=== PATIENT | female | born 1985 | race Caucasian/White ===

== ENCOUNTER 2016-10-13 12:11 | Inpatient (IN) | payer BC ==
[2016-10-10 12:26] LABS: BASOPHILS 0.5 %; BASOPHILS ABSOLUTE 0.04 10/3/uL (0.0-0.16); EOSINOPHILS ABSOLUTE 0.23 10/3/uL (0.0-0.53); IMMATURE GRANULOCYTES 0.1 %; IMMATURE GRANULOCYTES ABSOLUTE 0.01 10/3/uL (0.0-0.11); LYMPHOCYTES 36.4 %; LYMPHOCYTES ABSOLUTE 2.76 10/3/uL (0.67-4.30); MEAN CORPUSCULAR HEMOGLOB 28.6 pg (26.0-34.0); MEAN PLATELET VOLUME 9.4 fL (9.2-13.0); MONOCYTES 7.1 %; MONOCYTES ABSOLUTE 0.54 10/3/uL (0.21-1.20); NEUTROPHILS 52.9 %; NEUTROPHILS ABSOLUTE 4.01 10/3/uL (2.02-8.40); PLATELET COUNT 386 10/3/uL (150-400); RBC DISTRIBUTION WIDTH 14.5 % (12.0-16.0); WHITE BLOOD CELLS 7.6 10/3/uL (4.5-10.5)
[2016-10-10 12:29] LABS: HEMATOCRIT 40.3 % (36.0-48.0); HEMOGLOBIN 13.3 g/dL (12.0-16.0); MANUAL DIFF NO %; MEAN CORPUSCULAR VOLUME 86.7 fL (80-100); RED CELL COUNT 4.65 10/6/uL (4.0-5.6)
[2016-10-10 12:58] LABS: INTACT PTH (ICMA) 40.1 PG/ML (10.0-65.0)
[2016-10-10 13:03] LABS: BUN (BLOOD UREA NITROGEN) 13 MG/DL (6-23); CALCIUM, SERUM 9.2 MG/DL (8.5-10.4); CHLORIDE, SERUM 104 MMOL/L (96-112); CO2 (CARBON DIOXIDE) 30 MMOL/L (24-34); CREATININE 0.88 MG/DL (0.55-1.02); GFR AFRICAN AMERICAN 100 ML/MIN (>=60); GFR NON AFRICAN AMERICAN 86 ML/MIN (>=60); GLUCOSE, SERUM 76 MG/DL (60-99); POTASSIUM, SERUM 4.1 MMOL/L (3.5-5.3); SODIUM, SERUM 140 MMOL/L (135-148)
--- NOTE | ~2016-10-13 | CN ---
Consultation Report [facility] [address] [place]. [address] NAME: ES BERMUDEZ : 81 STATUS : ADM [place] PAT#: [id number] AGE: 31 ADM/REG DATE : 10/13/16 MR#: [id number] REPORT SERV DATE: 10/15/16 DICTATED BY: HEIDY WELLS DATE: 10/15/16 REPORT STATUS : Draft TRANSCRIBED BY: MODL DATE: 10/15/16 DATE OF CONSULTATION: 10/15/2016 REASON FOR CONSULTATION: Hypoxia. PRIMARY CARE DOCTOR: Appears to be unclear. HISTORY OF PRESENT ILLNESS: This is a 31-year-old female. She suffers from obesity, history of nephrolithiasis, anemia, and depression. The patient came in with a left renal calculus, had a cystoscopy, left ureteroscopy with stone fragmentation and dusting of left renal calculus with a stenting. Subsequent CT showed a small extracapsular hematoma with a 1 mm intrarenal calculus. The patient had received significant amount of narcotics, codeine, Versed, Dilaudid, Percocet. She was hypoxic yesterday. Her narcotics were weaned down; however, her TAR DISTRIBUTOR OPERATOR was still available. The actually helped provide her boluses of Dilaudid while she was in her sleep. Per the nursing staff as the patient would have some pain in her legs, she received 9 mg of Dilaudid from 1700 hours yesterday to the beginning of the shift this morning, it is 95% on 3 L. She states she has had some pleuritic chest pain that worsens with inspiration, more in the right and left sternal borders over the past two weeks, relieved by rest, lasts more than 20 minutes. The patient endorses positive chills. No fevers. Positive nausea. No vomiting. No diarrhea. Positive chest pain as described. Positive shortness of breath. Has no orthopnea. No productive cough. The patient states she does have some pain in her lower extremities, more at night and also in the day. She also may have some apnea per the , complicated by narcotics. I am awaiting the stat CTA of her chest. REVIEW OF SYSTEMS: Ten-point review of systems as per the HPI. Otherwise, negative. PAST MEDICAL HISTORY/PAST SURGICAL HISTORY: See above. ALLERGIES: APPARENTLY ARE MORPHINE WITH CODEINE, CAUSES RASH AND SWELLING; SULFA; PENICILLIN; MACRODANTIN; AND NITROFURANTOIN: FAMILY HISTORY: Hypertension in parents. SOCIAL HISTORY: Used to smoke less than five-pack years. No alcohol. No drug use. No current smoking. HOME MEDICATIONS: See MAR. We will continue what is relevant. We would like to know what Consultation Report [facility] [address] [place]. [address] NAME: ES BERMUDEZ : 81 STATUS : ADM [place] PAT#: [id number] AGE: 31 ADM/REG DATE : 10/13/16 MR#: [id number] REPORT SERV DATE: 10/15/16 DICTATED BY: HEIDY WELLS DATE: 10/15/16 REPORT STATUS : Draft TRANSCRIBED BY: ISH DATE: 10/15/16 medication at home at baseline. Takes Lortab 10/325 p.o. q.4 hours p.r.n. pain and tramadol 50 p.o. daily. PHYSICAL EXAMINATION: VITAL SIGNS: Currently temperature 98.6, pulse 101, respirations 18, 95% on 3 L, and blood pressure 117/59. GENERAL: No acute distress. HEENT: PERRLA. No scleral icterus. CARDIOVASCULAR: Regular rate and rhythm. No murmur. RESPIRATORY: Decreased breath sounds bibasilar. Bibasilar coarse breath sounds. ABDOMEN: Obese, nontender, and nondistended. Positive bowel sounds. EXTREMITIES: She does have some pain to palpation in the bilateral lower extremities. No edema. No ecchymosis. NEUROLOGIC: A and O x4/4. GCS of 15. PSYCHIATRIC: She is very anxious. LABORATORY DATA: She has white count of 7.9, hemoglobin 10.6, and 229,000 platelets. Potassium of 4.1; 26 bicarb, 0.96 creatinine, 11 BUN; 139 sodium; 106 sugar. I am going to get a CTA of the chest, pending. I am going to get an EKG that is pending. Cardiac enzymes are pending. Her creatinine just resulted near 1.0 for a stat BMP prior to getting the CTA with contrast. IMPRESSION AND RECOMMENDATIONS: 1. Acute hypoxic respiratory failure, likely multifactorial in etiology including high- dose narcotics with respiratory depression. 2. Probably atelectasis. 3. Rule out pulmonary embolus. 4. Obesity. 5. Nausea complicated by possible narcotic-associated gastroparesis. 6. History of use of Cipro. PLAN: Thank you very much for this consultation. Panculture. Continue her Levaquin. Stat procalcitonin level. Her creatinine is permissible for contrast. We will also evaluate her CTA of the chest and will call regarding the results. Placed her on heparin at this time. We will get a lower extremity ultrasound for clot given her increased pain in her lower extremity. Pleuritic chest pain, evaluate with cardiac enzymes and EKG, it is more likely just pleurisy, incentive spirometry 10 times an hour. We will get a BNP regarding her volume status in her lungs and diurese if more than 100. Altogether, she needs to reduce her narcotic. She has 9 mg of Dilaudid IV from 1700 hours yesterday to 7 a.m. this morning per the nurse, as a result, we will change her Dilaudid TAR DISTRIBUTOR OPERATOR 0.15, dose every 20 minutes, max of 0.45 per hour. I have educated the patient about this. Discontinue any other p.r.n. narcotics. She certainly has a low pain threshold as at baseline she takes Lortab 10 q.4 hours p.r.n. I have educated the family and patient about not doing any extra doses in her sleep of Dilaudid TAR DISTRIBUTOR OPERATOR pumping as well as the risk of apnea and respiratory depression. See rest of my orders. Consultation Report [address]. [address] NAME: ES BERMUDEZ : 81 STATUS : ADM [place] PAT#: [id number] AGE: 31 ADM/REG DATE : 10/13/16 MR#: [id number] REPORT SERV DATE: 10/15/16 DICTATED BY: HEIDY WELLS DATE: 10/15/16 REPORT STATUS : Draft TRANSCRIBED BY: MODL DATE: 10/15/16 All questions have been answered. It took well over 60 minutes to do. KYLEE/ISH Heidy Wells DO / [id number] CC: Melina Bueno III,SHAI HOPSON
--- NOTE | ~2016-10-13 | OP ---
Record Of Operation [facility] [address] [place]. [address] NAME: ES BERMUDEZ : 81 STATUS : ADM [place] PAT#: [id number] AGE: 31 ADM/REG DATE : 10/13/16 MR#: [id number] REPORT SERV DATE: 10/13/16 DICTATED BY: HARISH DUMONT III DATE: 10/13/16 REPORT STATUS : Draft TRANSCRIBED BY: MODL DATE: 10/13/16 DATE OF PROCEDURE: 10/13/2016 PROCEDURE: Cystoscopy, left retrograde, left ureteroscopic stone fragmentation, and dusting of left renal calculus. PREOPERATIVE DIAGNOSIS: Left renal calculus. POSTOPERATIVE DIAGNOSIS: Left renal calculus. ANESTHESIA: General. SURGEON: Harish Dumont M.D. DESCRIPTION OF PROCEDURE: Following induction of adequate general anesthesia, the patient was placed in the dorsal lithotomy position, prepped and draped in a sterile fashion. The urethra was entered and noted to be normal. The ureter was examined. There was clear efflux. A cone-tipped catheter was used to opacify the ureter. She had a very long ureter. There was a filling defect at the UPJ. A 3.8 Glidewire was placed though I attempted to place an 11 sheath which could not get out of the pelvic inlet. A rdaf-tcv-hvnm sheath was then placed and easily slid up to the proximal ureter. I then placed a second wire and attempted to place a axno-erf-cxqm sheath but with a wire in the sheath and a wire outside the sheath, the ureter was too tight for passage. The safety wire was removed and the sheath went up to just below the UPJ. The stone had been had migrated, it proximally was in the renal pelvis but soon fell into an upper lateral calyx. The laser was set initially on a dusting setting; however, it created too much dust but did break the stone up quite a bit. The regular laser settings were used and the stone base fell apart within 3 to 4 minutes. I attempted to remove some of the smaller fragments that were 1 mm, 1 less than 2 mm and was unsuccessful, so I used a dusting setting to further break all of the fragments. They basically were all in 1 calyx. After the stone was fragmented, it dusted into very passable fragments. I examined the remainder of the kidney. No other stones were noted. There was a Collin's plaque on the lower pole calyx. I examined the stones, again tried to basket a small stone to retrieve a small fragment for analysis and could not easily entrap a fragment. This was creating more bleeding, so the system was opacified and the ureter was examined while withdrawing the sheath, noted there was no obvious trauma to the ureteral mucosa. Before removing the scope, a wire was left in the upper pole. A 628 inlay [place] was placed with a half of a loop in the upper pole and a loop in the bladder. A suture was taped to the bladder for later removal. The patient tolerated the procedure well. OB/MODL Harish Dumont III, M.D. Record Of Operation [address] [address] NAME: ES BERMUDEZ : 81 STATUS : ADM [place] PAT#: [id number] AGE: 31 ADM/REG DATE : 10/13/16 MR#: [id number] REPORT SERV DATE: 10/13/16 DICTATED BY: HARISH DUMONT III DATE: 10/13/16 REPORT STATUS : Draft TRANSCRIBED BY: ISH DATE: 10/13/16 / [id number] CC: Melina Bueno III, MD
--- NOTE | ~2016-10-13 | HP ---
History And Physical [facility] [id number] [place]. [address] NAME: ES BERMUDEZ : 81 STATUS : ADM IN PAT#: [id number] AGE: 31 ADM/REG DATE : 10/13/16 MR#: [id number] REPORT SERV DATE: 10/17/16 DICTATED BY: HARISH DUMONT III DATE: 10/17/16 REPORT STATUS : Draft TRANSCRIBED BY: MODL DATE: 10/17/16 DATE OF ADMISSION: 10/13/2016 HISTORY OF PRESENT ILLNESS: She comes in today for left renal pelvic stone. She has a history of stones, had a stone removed in 03/2016. She began having left-sided pain with a 6-7 mm stone in the left UPJ. Her kidneys are otherwise free of stone. She has had no fever, chills, or dysuria. Her past medical history includes frequent stones. She also has history of depression and anemia. HOME MEDICINES: Include Prozac and tramadol. ALLERGIES: SHE IS ALLERGIC TO MORPHINE, SULFA, PENICILLIN, AND MACRODANTIN. SOCIAL HISTORY: She is a former smoker. Does not drink or smoke at this time. FAMILY HISTORY: Positive for hypertension. PHYSICAL EXAMINATION: GENERAL: She is alert and oriented. Mood and affect are normal. HEENT: Unremarkable. NECK: Supple. LUNGS: Clear. HEART: She had a regular rate and rhythm. No murmurs or gallops. ABDOMEN: In the office, she had mild left flank tenderness. EXTREMITIES: There was no pedal edema. IMPRESSION: Left ureteropelvic junction stone. We will plan to do ureteroscopy, laser fragmentation, and removal with J stent. She did have episode last March, which was a fairly uneventful stone removal, and when her stent was removed, she remained in the hospital three to four days for protracted pain. We tried to leave a suture on the stent today so she can remove that soon after surgery. OB/MODL Harish Dumont III, M.D. / [id number] CC: Melina Bueno III, MD
--- NOTE | ~2016-10-13 | DS ---
Discharge Summary [facility] [address] [place]. [address] NAME: ES BERMUDEZ : 81 STATUS : DIS IN PAT#: [id number] AGE: 31 ADM/REG DATE : 10/13/16 MR#: [id number] REPORT SERV DATE: 10/27/16 DICTATED BY: HARISH CASTELLANO III DATE: 10/26/16 REPORT STATUS : Draft TRANSCRIBED BY: ISH DATE: 10/26/16 Data Collection from hospitalization DISCHARGE DIAGNOSES: 1. Left renal calculus. 2. Hypertension. 3. Acute hypoxemic respiratory failure, likely multifactorial in etiology. 4. Obesity. 5. Nausea complicated by possible narcotic-associated gastroparesis. CONSULTATIONS: Dr. Jacob Corona. PROCEDURES PERFORMED: 1. Cystoscopy, left retrograde, left ureteroscopic stone fragmentation and dusting of left renal calculus, 10/13/2016. 2. CT of the abdomen and pelvis without contrast, 10/13/2016. 3. CTA of the chest and abdomen, 10/15/2016. MEDICATIONS: Prozac 60 mg at bedtime, Ultram 50 mg daily as needed, Phenergan 25 mg every 6 hours as needed. CONDITION AT DISCHARGE: Upon discharge, she did appear to be doing well and had no new complaints. DISPOSITION: She had been discharged home to continue a regular diet with activity as discussed. She was to avoid heavy lifting and was to have no driving while taking narcotic pain medication and was to have no bathing in hot tubs or swimming. She was to follow up with me in the office on 11/06/2016 and call Pain Management for a followup appointment for one to two weeks. HOSPITAL COURSE: This 31-year-old female comes in today for left renal pelvic stone. She had a history of stones, had a stone removed in March 2016. She began having left-sided pain with a 6-7 mm stone in the left UPJ. Her kidneys were otherwise free of stone. She had no fever, chills, or dysuria. Her past medical history included frequent stone. She also had a history of depression and anemia. She was admitted for surgery and further evaluation. Upon admission to the hospital, she had been placed on orders for preoperative patient. She was taken to the operating room where she did undergo the above cystoscopy, left retrograde, left ureteroscopic stone fragmentation and dusting of the left renal calculus. She tolerated this well and was transferred to the recovery room. She did also undergo the above CT of the abdomen and pelvis on the day of admission. Later that same day, Dr. Herve Reyes had come to see the patient secondary to increasing pain and he had noted that she had received 2 mg of Dilaudid and 2 mg of Versed as well as 60 mcg of clonidine IV and 6.25 mg of Phenergan, and she has remained uncomfortable and was not responding to prior treatment, and he had ordered a B and O suppository and FITTER'S ASSISTANT Dilaudid, and I was made aware of the situation and possible ( ) bleeding, and a CBC was also ordered by Dr. Herve Reyes. On postop day 1, she did appear to be doing well and we were in agreement with FITTER'S ASSISTANT for pain control. It was recommended she undergo a CT scan. She was afebrile and her vital signs were stable. She was arousable and was noted to be oriented, Discharge Summary [address] [address] NAME: ES BERMUDEZ : 81 STATUS : DIS IN PAT#: [id number] AGE: 31 ADM/REG DATE : 10/13/16 MR#: [id number] REPORT SERV DATE: 10/27/16 DICTATED BY: HARISH CASTELLANO III DATE: 10/26/16 REPORT STATUS : Draft TRANSCRIBED BY: ISH DATE: 10/26/16 however was very drowsy. Her was noted to have been pushing her FITTER'S ASSISTANT for her when she groaned. She was continued on supportive care. On 10/15/2016, she had complaints of flank pain twice during the night. Her O2 saturation was at 98% on oxygen. Her hemoglobin was at 10.5. She was continued on her current medications. She did undergo the above CTA of the chest and abdomen. She tolerated this without difficulty. Her stent had been removed secondary to her pain. She had also been evaluated by Dr. Jacob Corona secondary to her hypoxia which was felt to be acute hypoxemic respiratory failure which was felt to be multifactorial in etiology to include high-dose narcotics with respiratory depression. Dr. Corona had recommended the patient undergo panculture and she was to continue with Levaquin for the time being. She had also undergone a stat procalcitonin level. She had also been placed on heparin. She did also undergo a BNP and if it was more than 100, she was to undergo diuresis. Altogether, it was felt that she needed to reduce her narcotic. He changed her Dilaudid FITTER'S ASSISTANT to 0.15 dose every 20 minutes with a max of 0.45 per hour. All other as-needed narcotics were also discontinued. He did also note that she had a low pain threshold, as at baseline she takes Lortab 10 every 4 hours as needed. He had also educated the family and patient about not doing extra doses in her sleep of Dilaudid FITTER'S ASSISTANT pumping as well as the risk of apnea and respiratory depression. On 10/16/2016, she was afebrile and did state that she had left flank pain after the stent was pulled. Her WBCs were at 5.8, hemoglobin 10.5. She was continued on supportive care. She was noted to be breathing better and was continued on her current medications. Dilaudid FITTER'S ASSISTANT was being decreased. On 10/17/2016, she was noted to be feeling better and had no new complaints and discharge planning was begun. She did continue to do well. Due to her stable condition, she was then discharged on 10/18/2016 with the above instructions. Information collected by: Randee Serrano.I.T. I submit the above information as my discharge summary. KELLY/ISH Harish Castellano III, M.D. / [id number] CC: Melina Bueno III, MD
[~2016-10-13 12:11] MED LIST: CIP5 PO; DIL2TAB PO; FLOMAX4 PO; NORCO1 TAB PO; NYS500UDL PO; PR25 PO; PROZAC40 MG PO; PYR100B PO; STOOL SOFTENER OTC PO; ULTRAM50 PO
[2016-10-13 18:36] LABS: BASOPHILS 0.2 %; BASOPHILS ABSOLUTE 0.02 10/3/uL (0.0-0.16); EOSINOPHILS 0.3 %; EOSINOPHILS ABSOLUTE 0.03 10/3/uL (0.0-0.53); HEMATOCRIT 37.2 % (36.0-48.0); HEMOGLOBIN 12.2 g/dL (12.0-16.0); IMMATURE GRANULOCYTES 0.2 %; IMMATURE GRANULOCYTES ABSOLUTE 0.02 10/3/uL (0.0-0.11); LYMPHOCYTES 11.3 %; LYMPHOCYTES ABSOLUTE 1.32 10/3/uL (0.67-4.30); MEAN CORPUS HGB CONC 32.8 g/dL (32.0-36.0); MEAN CORPUSCULAR HEMOGLOB 28.6 pg (26.0-34.0); MEAN CORPUSCULAR VOLUME 87.3 fL (80-100); MEAN PLATELET VOLUME 9.3 fL (9.2-13.0); MONOCYTES 5.3 %; MONOCYTES ABSOLUTE 0.62 10/3/uL (0.21-1.20); NEUTROPHILS 82.7 %; NEUTROPHILS ABSOLUTE 9.72 10/3/uL (2.02-8.40); RBC DISTRIBUTION WIDTH 14.4 % (12.0-16.0); RED CELL COUNT 4.26 10/6/uL (4.0-5.6)
[2016-10-13 18:42] LABS: MANUAL DIFF NO %; PLATELET COUNT 270 10/3/uL (150-400); WHITE BLOOD CELLS 11.7 10/3/uL (4.5-10.5)
[2016-10-13 22:04] LABS: BUN (BLOOD UREA NITROGEN) 11 MG/DL (6-23); CALCIUM, SERUM 8.3 MG/DL (8.5-10.4); CHLORIDE, SERUM 106 MMOL/L (96-112); CO2 (CARBON DIOXIDE) 26 MMOL/L (24-34); CREATININE 0.96 MG/DL (0.55-1.02); GFR AFRICAN AMERICAN 90 ML/MIN (>=60); GFR NON AFRICAN AMERICAN 78 ML/MIN (>=60); POTASSIUM, SERUM 4.1 MMOL/L (3.5-5.3); SODIUM, SERUM 139 MMOL/L (135-148)
[2016-10-13 22:05] LABS: GLUCOSE, SERUM 106 MG/DL (60-99)
[2016-10-14 05:00] LABS: BASOPHILS 0.2 %; BASOPHILS ABSOLUTE 0.02 10/3/uL (0.0-0.16); EOSINOPHILS 0.2 %; EOSINOPHILS ABSOLUTE 0.02 10/3/uL (0.0-0.53); HEMATOCRIT 34.4 % (36.0-48.0); HEMOGLOBIN 11.3 g/dL (12.0-16.0); IMMATURE GRANULOCYTES 0.2 %; IMMATURE GRANULOCYTES ABSOLUTE 0.02 10/3/uL (0.0-0.11); LYMPHOCYTES 16.1 %; MANUAL DIFF NO %; MEAN CORPUS HGB CONC 32.8 g/dL (32.0-36.0); MEAN CORPUSCULAR HEMOGLOB 28.8 pg (26.0-34.0); MEAN CORPUSCULAR VOLUME 87.8 fL (80-100); MEAN PLATELET VOLUME 9.7 fL (9.2-13.0); MONOCYTES 7.1 %; MONOCYTES ABSOLUTE 0.88 10/3/uL (0.21-1.20); NEUTROPHILS 76.2 %; PLATELET COUNT 333 10/3/uL (150-400); RBC DISTRIBUTION WIDTH 14.6 % (12.0-16.0); RED CELL COUNT 3.92 10/6/uL (4.0-5.6); WHITE BLOOD CELLS 12.4 10/3/uL (4.5-10.5)
[2016-10-14 16:10] LABS: HEMATOCRIT 34.3 % (36.0-48.0); HEMOGLOBIN 11.1 g/dL (12.0-16.0)
[2016-10-15 07:32] LABS: HEMATOCRIT 33.2 % (36.0-48.0); HEMOGLOBIN 10.5 g/dL (12.0-16.0)
[2016-10-15 09:34] LABS: BASOPHILS 0.4 %; BASOPHILS ABSOLUTE 0.03 10/3/uL (0.0-0.16); EOSINOPHILS 2.5 %; HEMATOCRIT 32.5 % (36.0-48.0); HEMOGLOBIN 10.6 g/dL (12.0-16.0); IMMATURE GRANULOCYTES 0.1 %; IMMATURE GRANULOCYTES ABSOLUTE 0.01 10/3/uL (0.0-0.11); LYMPHOCYTES 24.3 %; LYMPHOCYTES ABSOLUTE 1.92 10/3/uL (0.67-4.30); MEAN CORPUS HGB CONC 32.6 g/dL (32.0-36.0); MEAN CORPUSCULAR HEMOGLOB 28.9 pg (26.0-34.0); MEAN CORPUSCULAR VOLUME 88.6 fL (80-100); MEAN PLATELET VOLUME 9.1 fL (9.2-13.0); MONOCYTES 8.4 %; MONOCYTES ABSOLUTE 0.66 10/3/uL (0.21-1.20); NEUTROPHILS 64.3 %; NEUTROPHILS ABSOLUTE 5.08 10/3/uL (2.02-8.40); RBC DISTRIBUTION WIDTH 14.6 % (12.0-16.0); RED CELL COUNT 3.67 10/6/uL (4.0-5.6); WHITE BLOOD CELLS 7.9 10/3/uL (4.5-10.5)
[2016-10-15 09:35] LABS: MANUAL DIFF NO %; PLATELET COUNT 225 10/3/uL (150-400)
[2016-10-15 09:49] LABS: A/G RATIO 0.9 (0.7-1.9); ALBUMIN 3.1 G/DL (3.5-5.0); ALKALINE PHOSPHATASE 63 U/L (45-117); BUN (BLOOD UREA NITROGEN) 10 MG/DL (6-23); CALCIUM, SERUM 7.9 MG/DL (8.5-10.4); CHLORIDE, SERUM 102 MMOL/L (96-112); CO2 (CARBON DIOXIDE) 28 MMOL/L (24-34); CREATININE 1.03 MG/DL (0.55-1.02); GFR AFRICAN AMERICAN 83 ML/MIN (>=60); GFR NON AFRICAN AMERICAN 71 ML/MIN (>=60); GLOBULIN 3.4 G/DL (2.5-4.1); GLUCOSE, SERUM 86 MG/DL (60-99); POTASSIUM, SERUM 4.1 MMOL/L (3.5-5.3); SGOT(AST) 17 U/L (5-40); SGPT(ALT) 19 U/L (5-65); SODIUM, SERUM 135 MMOL/L (135-148); TOTAL PROTEIN 6.5 G/DL (6.0-8.5)
[2016-10-15 09:51] LABS: TOTAL BILIRUBIN 0.2 MG/DL (0-1.2)
[2016-10-15 15:30] LABS: CPK 204 U/L (0-200); TROPONIN I 0.04 NG/ML (<0.05)
[2016-10-15 15:31] LABS: CK-MB 1.5 NG/ML
[2016-10-16 06:04] LABS: BASOPHILS 0.3 %; BASOPHILS ABSOLUTE 0.02 10/3/uL (0.0-0.16); EOSINOPHILS 5.2 %; HEMATOCRIT 32.6 % (36.0-48.0); HEMOGLOBIN 10.5 g/dL (12.0-16.0); IMMATURE GRANULOCYTES 0.2 %; IMMATURE GRANULOCYTES ABSOLUTE 0.01 10/3/uL (0.0-0.11); LYMPHOCYTES 42.7 %; LYMPHOCYTES ABSOLUTE 2.47 10/3/uL (0.67-4.30); MEAN CORPUS HGB CONC 32.2 g/dL (32.0-36.0); MEAN CORPUSCULAR HEMOGLOB 28.5 pg (26.0-34.0); MEAN CORPUSCULAR VOLUME 88.3 fL (80-100); MEAN PLATELET VOLUME 9.4 fL (9.2-13.0); MONOCYTES 8.7 %; NEUTROPHILS 42.9 %; NEUTROPHILS ABSOLUTE 2.48 10/3/uL (2.02-8.40); PLATELET COUNT 262 10/3/uL (150-400); RBC DISTRIBUTION WIDTH 14.6 % (12.0-16.0); RED CELL COUNT 3.69 10/6/uL (4.0-5.6); WHITE BLOOD CELLS 5.8 10/3/uL (4.5-10.5)
[2016-10-16 06:09] LABS: MANUAL DIFF NO %
[2016-10-16 06:18] LABS: BUN (BLOOD UREA NITROGEN) 7 MG/DL (6-23); CALCIUM, SERUM 8.2 MG/DL (8.5-10.4); CHLORIDE, SERUM 106 MMOL/L (96-112); CO2 (CARBON DIOXIDE) 29 MMOL/L (24-34); CREATININE 0.87 MG/DL (0.55-1.02); GFR AFRICAN AMERICAN 101 ML/MIN (>=60); GFR NON AFRICAN AMERICAN 88 ML/MIN (>=60); GLUCOSE, SERUM 81 MG/DL (60-99); PHOSPHORUS, SERUM 2.5 MG/DL (2.5-4.5); POTASSIUM, SERUM 3.8 MMOL/L (3.5-5.3); SODIUM, SERUM 140 MMOL/L (135-148)
[2016-10-17 06:15] LABS: BASOPHILS 0 %; EOSINOPHILS 0 %; HEMATOCRIT 34.4 % (36.0-48.0); HEMOGLOBIN 11.1 g/dL (12.0-16.0); IMMATURE GRANULOCYTES 0.1 %; IMMATURE GRANULOCYTES ABSOLUTE 0.01 10/3/uL (0.0-0.11); LYMPHOCYTES 8.8 %; LYMPHOCYTES ABSOLUTE 0.65 10/3/uL (0.67-4.30); MEAN CORPUS HGB CONC 32.3 g/dL (32.0-36.0); MEAN CORPUSCULAR HEMOGLOB 28.2 pg (26.0-34.0); MEAN CORPUSCULAR VOLUME 87.5 fL (80-100); MEAN PLATELET VOLUME 9.7 fL (9.2-13.0); MONOCYTES 1.2 %; MONOCYTES ABSOLUTE 0.09 10/3/uL (0.21-1.20); NEUTROPHILS 89.9 %; NEUTROPHILS ABSOLUTE 6.66 10/3/uL (2.02-8.40); PLATELET COUNT 285 10/3/uL (150-400); RBC DISTRIBUTION WIDTH 14.3 % (12.0-16.0); RED CELL COUNT 3.93 10/6/uL (4.0-5.6); WHITE BLOOD CELLS 7.4 10/3/uL (4.5-10.5)
[2016-10-17 06:18] LABS: MANUAL DIFF NO %
[2016-10-17 06:31] LABS: BUN (BLOOD UREA NITROGEN) 7 MG/DL (6-23); CHLORIDE, SERUM 105 MMOL/L (96-112); CO2 (CARBON DIOXIDE) 25 MMOL/L (24-34); CREATININE 0.85 MG/DL (0.55-1.02); GFR AFRICAN AMERICAN 104 ML/MIN (>=60); GFR NON AFRICAN AMERICAN 90 ML/MIN (>=60); PHOSPHORUS, SERUM 2.6 MG/DL (2.5-4.5); POTASSIUM, SERUM 4.1 MMOL/L (3.5-5.3); SODIUM, SERUM 134 MMOL/L (135-148)
[2016-10-17 06:33] LABS: CALCIUM, SERUM 9.3 MG/DL (8.5-10.4); GLUCOSE, SERUM 139 MG/DL (60-99)
[2016-10-18 05:10] LABS: BASOPHILS 0.1 %; BASOPHILS ABSOLUTE 0.01 10/3/uL (0.0-0.16); EOSINOPHILS 0.3 %; EOSINOPHILS ABSOLUTE 0.03 10/3/uL (0.0-0.53); HEMATOCRIT 34.8 % (36.0-48.0); HEMOGLOBIN 11.4 g/dL (12.0-16.0); IMMATURE GRANULOCYTES 0.2 %; IMMATURE GRANULOCYTES ABSOLUTE 0.02 10/3/uL (0.0-0.11); LYMPHOCYTES ABSOLUTE 2.47 10/3/uL (0.67-4.30); MANUAL DIFF NO %; MEAN CORPUS HGB CONC 32.8 g/dL (32.0-36.0); MEAN CORPUSCULAR HEMOGLOB 28.7 pg (26.0-34.0); MEAN CORPUSCULAR VOLUME 87.7 fL (80-100); MEAN PLATELET VOLUME 9.7 fL (9.2-13.0); MONOCYTES 7.7 %; MONOCYTES ABSOLUTE 0.86 10/3/uL (0.21-1.20); NEUTROPHILS 69.7 %; NEUTROPHILS ABSOLUTE 7.85 10/3/uL (2.02-8.40); PLATELET COUNT 257 10/3/uL (150-400); RBC DISTRIBUTION WIDTH 14.7 % (12.0-16.0); RED CELL COUNT 3.97 10/6/uL (4.0-5.6); WHITE BLOOD CELLS 11.2 10/3/uL (4.5-10.5)
[2016-10-18 05:24] LABS: CALCIUM, SERUM 8.5 MG/DL (8.5-10.4); CHLORIDE, SERUM 106 MMOL/L (96-112); CREATININE 0.89 MG/DL (0.55-1.02); GFR AFRICAN AMERICAN 99 ML/MIN (>=60); GFR NON AFRICAN AMERICAN 85 ML/MIN (>=60); POTASSIUM, SERUM 4.2 MMOL/L (3.5-5.3)
[2016-10-18 05:26] LABS: BUN (BLOOD UREA NITROGEN) 12 MG/DL (6-23); CO2 (CARBON DIOXIDE) 31 MMOL/L (24-34); GLUCOSE, SERUM 95 MG/DL (60-99); SODIUM, SERUM 143 MMOL/L (135-148)
[2016-10-18] MEDS ORDERED: OXYCON20 PO (10:08)
[2016-10-18] MEDS ORDERED: PR25 PO (10:08)
== END 2016-10-18 12:24 | disposition home or self-care (01) | DRG 693 ==
LOC: SDC 12:11 → 4SO 18:58
PROVIDERS: Internal Medicine; Urology
PROC: 0TF78ZZ Fragmentation in Left Ureter, Via Natural or Artificial Opening Endoscopic (ICD-10-PCS; 2016-10-13)
PROC: BT1FZZZ Fluoroscopy of Left Kidney, Ureter and Bladder (ICD-10-PCS; principal; 2016-10-13 13:45)
DX: N20.0 Calculus of kidney (principal); J96.01 Acute respiratory failure with hypoxia; J98.11 Atelectasis; Z68.41 Body mass index [BMI] 40.0-44.9, adult; E66.01 Morbid (severe) obesity due to excess calories; F32.9 Major depressive disorder, single episode, unspecified; Z88.0 Allergy status to penicillin; Z88.2 Allergy status to sulfonamides; Z87.442 Personal history of urinary calculi; Z79.899 Other long term (current) drug therapy; Z88.5 Allergy status to narcotic agent; Z88.8 Allergy status to other drugs, medicaments and biological substances; Z87.891 Personal history of nicotine dependence; Z82.49 Family history of ischemic heart disease and other diseases of the circulatory system
CPT/HCPCS: 71275; 74175; 74176; 74420; 80048; 80053; 82550; 82553; 83735; 83880; 83970; 84100; 84484; 84703; 85014; 85018; 85025; 87040; 93005; A9270-GY; C1758; C1769; C1894; C2617; J0735; J1170; J1200; J1885; J2250; J2405; J2550; J2710; J2930; J3010; Q9967